=== PATIENT | female | born 1960 | race Asian ===

== ENCOUNTER 2021-07-07 07:03 | Day surgery (SDC) | payer MEDICAID, SELFPAY ==
[~2021-07-07] VITALS: Ht 167.6 cm; Wt 86.2 kg
[2021-07-07] MEDS ORDERED: ATROPINE SULFATE 0.4 MG/ML VIAL IVP ONE (07:04)
[2021-07-07] MEDS ORDERED: SIMETHICONE 40 MG/0.6 ML ML ONE (07:32)
[2021-07-07] MEDS ORDERED: fentaNYL CITRATE/PF 100 MCG/2 ML AMP ONE (07:32)
[2021-07-07] MEDS ORDERED: MIDAZOLAM HCL 5 MG/5 ML VIAL ONE (07:33)
[2021-07-07 12:31] VITALS: BP_SYST 109
== END 2021-07-07 09:30 | disposition home or self-care (01) ==
LOC: SDS 07:03 → SMU 07:06 → SDS 09:30
PROVIDERS: ATTEND Internal Medicine
DX: Z12.11 Encounter for screening for malignant neoplasm of colon (principal); K29.50 Unspecified chronic gastritis without bleeding; K29.80 Duodenitis without bleeding; K44.9 Diaphragmatic hernia without obstruction or gangrene; K64.8 Other hemorrhoids; K21.00 Gastro-esophageal reflux disease with esophagitis, without bleeding; E78.5 Hyperlipidemia, unspecified; Z86.010 Personal history of colon polyps; Z80.8 Family history of malignant neoplasm of other organs or systems; Z79.899 Other long term (current) drug therapy; Z20.822 Contact with and (suspected) exposure to COVID-19
CPT/HCPCS: 36415; 43239; 45378; 87081; 88305; 88312; 88313; 96365; 99152; G0378; J0461; J2250; J3010; U0003